=== PATIENT | female | born 1950 | race Two or more races ===

== ENCOUNTER 2017-05-29 17:58 | Emergency (ER) | payer SELFPAY ==
[~2017-05-29] VITALS: Ht 167.6 cm; Wt 81.6 kg
[2017-05-29 18:11] VITALS: BP 102/68
== END 2017-05-30 06:29 | disposition left against medical advice (07) ==
LOC: ER 18:15
DX: S01.91XA Laceration without foreign body of unspecified part of head, initial encounter (principal); Z53.21 Procedure and treatment not carried out due to patient leaving prior to being seen by health care provider; W19.XXXA Unspecified fall, initial encounter; Y93.89 Activity, other specified; Y99.8 Other external cause status; Y92.89 Other specified places as the place of occurrence of the external cause